=== PATIENT | male | born 1995 | race Two or more races ===

== ENCOUNTER 2017-11-18 13:21 | Emergency (ER) | payer MEDICAID, OTHER ==
[~2017-11-18] VITALS: Ht 182.9 cm; Wt 79.4 kg
[2017-11-18] MEDS ORDERED: IV NS 0.9% 1,000 ML BAG IV ONE ×2 (14:00→14:30)
--- NOTE | 2017-11-18 14:00 | NUR ---
PT CAME IN FROM [facility] WITH C/O ABD PAIN X FRIDAY, DENIES N/V/D. NAD NOTED. VSS. DENIES TRAUMA. SEEN BY MD FOR EVAL. SAFETY AND COMFORT MEASURES PROVIDED. WILLL MONITOR.
[2017-11-18 14:11] LABS: BASOPHILS % (AUTO) 0.3 % (0.0-2.0); EOSINOPHILS % (AUTO) 0.5 % (0.0-6.0); HEMATOCRIT 40 % (39-51); HEMOGLOBIN 13.6 g/dL (13.5-17.5); LYMPHOCYTES # (AUTO) 1.1 /CMM (0.8-4.8); LYMPHOCYTES % (AUTO) 13.3 % (20.0-44.0); MEAN CORPUSCULAR HGB CONC 34 g/dl (31.0-36.0); MEAN CORPUSCULAR VOLUME 80 fL (80-96); MONOCYTES # (AUTO) 0.4 /CMM (0.1-1.30); MONOCYTES % (AUTO) 4.4 % (2.0-12.0); NEUTROPHILS # (AUTO) 6.9 /CMM (1.8-8.9); NEUTROPHILS % (AUTO) 81.5 % (43.0-81.0); PLATELET COUNT (AUTO) 267 /CMM (150-450); RDW COEFFICIENT OF VARIATION 13.2 (11.5-15.0); RED BLOOD CELL COUNT(AUTO) 5.01 MIL/uL (4.5-6.0); WHITE BLOOD COUNT (AUTO) 8.4 K/uL (4.3-11.0)
[2017-11-18] MEDS ORDERED: MORPHINE SULFATE INJ 4 MG/ML DISP.SYRIN ONE ×3 (14:20→19:29)
[2017-11-18] MEDS ORDERED: ONDANSETRON HCL/PF 4 MG/2 ML VIAL ONE ×2 (14:20→16:34)
[2017-11-18 14:25] LABS: CREATININE 2.8 mg/dL (0.6-1.3); POTASSIUM 4.9 mmol/L (3.5-5.1)
[2017-11-18 14:26] LABS: INR 0.86 (0.85-1.15)
[2017-11-18] MEDS ORDERED: ONDANSETRON HCL/PF 4 MG/2 ML VIAL IVP ONE (14:30)
[2017-11-18] MEDS ORDERED: MORPHINE SULFATE INJ 2 MG/ML DISP.SYRIN IV ONE ×3 (14:30→19:30)
[2017-11-18 14:40] LABS: ALBUMIN 3.7 g/dL (3.4-5.0); BILIRUBIN,DIRECT 0.1 mg/dL (0.0-0.2); BILIRUBIN,TOTAL 0.3 mg/dL (0.2-1.0); TOTAL PROTEIN, SERUM 7.6 g/dL (6.4-8.2)
[2017-11-18 15:18] LABS: APPEARANCE,URINE Clear (CLEAR); BILIRUBIN,URINE Negative (NEGATIVE); BLOOD, URINE Small Ery/uL (NEGATIVE); COLOR,URINE Yellow (YELLOW); KETONES,URINE Negative (NEGATIVE); LEUKOCYTE ESTERASE ,URINE Negative (NEGATIVE); NITRITE, URINE Negative (NEGATIVE); PH,URINE 5.5 (5.0-8.0); PROTEIN,URINE Negative (NEGATIVE); UGLUCOSE Negative (NEGATIVE); UROBILINOGEN,URINE 0.2 EU/dL (0.2)
[2017-11-18] MEDS ORDERED: IBUP-1953 PO (15:27)
[2017-11-18 15:28] LABS: RBC,URINE 0-3 /HPF (0-2)
[2017-11-18 15:29] LABS: BACTERIA,URINE Rare /HPF (None Seen); SQUAMOUS EPITHELIAL CELL,UR Rare /HPF (None Seen)
--- NOTE | 2017-11-18 16:18 | NUR ---
[facility] AUTHORIZATION NUMBER FOR TRANSFER: [id number]
[2017-11-18] MEDS ORDERED: IV D5/0.45 NACL 1,000 ML IV ONE (16:30)
[2017-11-18] MEDS ORDERED: ONDANSETRON HCL/PF 4 MG/2 ML VIAL IV ONE (16:30)
--- NOTE | 2017-11-18 17:22 | NUR ---
NUMBER FOR REPORT [phone], ROOM [id number] MS.
--- NOTE | 2017-11-18 17:34 | NUR ---
CALLED [facility] FOR TRANSPORT ETA OF 190 WAS GIVEN. TRIP#[id number]
--- NOTE | 2017-11-18 18:09 | NUR ---
REPORT GIVEN TO [employer] SHERRY PINO FOR [facility].
[2017-11-18 19:50] VITALS: BP 165/97
--- NOTE | 2017-11-18 19:50 | NUR ---
REPORT GIVEN TO ALAN/EMT.
== END 2017-11-18 19:58 | disposition short-term general hospital (02) ==
LOC: ER 13:26
DX: K59.00 Constipation, unspecified (principal); N28.9 Disorder of kidney and ureter, unspecified; F17.200 Nicotine dependence, unspecified, uncomplicated
CPT/HCPCS: 36415; 74176; 76705; 76770; 80048; 80076; 81001; 82550; 83690; 85025; 85730; 96361; 96374; 96375; 96376; 99285; 99406; A4606; J2270 ×3; J2405 ×2; J3490; J7030; Z7610; 81000-TC